=== PATIENT | female | born 1970 | race Caucasian/White ===

== ENCOUNTER 2022-07-23 22:58 | Emergency (ER) | payer OTHER, SELFPAY ==
[2022-07-23 23:03] VITALS: BP 138/88; PULSE 88; O2SAT 100
[2022-07-23 23:16] VITALS: BP 133/84; PULSE 80; RESP 20; TEMP 37.1; O2SAT 98; BMI 21.9
--- NOTE | 2022-07-24 00:05 | ED.ANXIETY ---
HPI - Anxiety General Chief Complaint: Anxiety Stated Complaint: anxiety Time Seen by Provider: 07/23/22 23:05 History of Present Illness HPI narrative: Patient is a 52-year-old female with a history of anxiety panic attacks. Complained that she had lack of sleep for the last 3 weeks feels very anxious. No suicidal homicidal ideation. Under lot of stress. Patient was seen at [facility] yesterday. Was given Atarax 50 mg. Came back in today to [facility] for the same. Patient took the Atarax was concerned that she might from the medication. Was unable to fall sleep. No fever no chills no chest pain or shortness breath no nausea no vomiting Related Data Allergies Allergy/AdvReac Type Severity Reaction Status Date / Time No Known Allergies Allergy Verified 07/23/22 23:16 Review of Systems Review of Systems: No fever no chills no cough congestion Yes all other systems are reviewed and are negative PMFSH Past Medical History Attestation statement: The following information was validated with the patient. Social History Social History Advance Directives: No Advance Directives Information Provided: Yes Physical Exam Vital Signs: Vital Signs: Last Vital Signs Temp 98.7 F 07/23/22 23:16 Pulse 80 07/23/22 23:16 Resp 20 07/23/22 23:16 BP 133/84 07/23/22 23:16 Pulse Ox 98 07/23/22 23:16 O2 Del Method Room Air 07/23/22 23:16 BMI result Body Mass Index 21.9 Appearance: Alert. Oriented X3. No acute distress. Eyes: Pupils equal, round and reactive to light. ENT: Pharynx normal. Neck: Normal inspection. Neck supple. No lymph nodes noted. No crepitus CVS: Normal heart rate and rhythm. Pulses normal. Normal S1 and S2 Respiratory: No respiratory distress. Breath sounds normal. No Wheezing. No rales Abdomen: Soft and nontender. No rigidity. No distention. good BS x4 Skin: Skin warm and dry. Normal skin color. Normal skin turgor. Extremities: No lower extremity edema. Neurovascular intact to all extremities. No Lacerations. No Rash Neuro: Oriented X 3. No motor deficit. No sensory deficit. Moving all extermities. No slurred speech Medical Decision Making Medical Decision Making MDM Narrative: Patient feel very anxious. Not suicidal not homicidal. Worry about medications. Worry about not able to sleep. Patient has a therapist. At this point she does not want a stay for evaluation by crisis. She is leaving in seeing a therapist in the morning. She is in stable condition. Discharge Plan Discharge Clinical Impression: Acute anxiety Patient Disposition: Home, Self-Care Instructions: Anxiety (ED) Referrals: Physician,Becca J [Primary Care Provider] - (Please see a therapist in a.m.)
--- OUTSIDE RECORDS SUMMARY | 2022-07-24 00:17 | XMS_ITS | Continuity of Care Document ---
Author Name Unknown Organization [facility] As critical [facility] hospital Address [address] [place] [address] ve [address] [place] [address]- Care Team Providers Care Watershed Coordinator Name Role Phone Eliezer HOOD, Emma Sanchez Primary Care Physician Encounter [facility] [place] Date(s): 07/20/20 - 08/19/20 [facility] [address] [place], [place] [address] Allergies, Adverse Reactions, Alerts No Known Medication Allergies Medications Ativan Tablet = 0.5 mg, By Mouth, 2 times a day, PRN as needed for anxiety, 0 Refills, Maintenance, 12/22/13 10:09:37 EDT Start Date: 12/22/13 Status: Ordered CeleXA 10 mg oral tablet 10 mg, 1, tablet, By Mouth, Daily in AM, # 90 tablet, Refills 0, Maintenance, 01/08/19 12:24:02 EDT Start Date: 01/08/19 Status: Ordered Colace sodium 100 mg oral capsule 100 mg, 1, capsule, By Mouth, 2 times a day, PRN, # 60 capsule, Refills 0, Tot. Refills 0, Maintenance, for constipation, 01/11/19 14:26:00 EDT, Route to Pharmacy Electronically, [id number], [facility]/pharmacy #[id number] Start Date: 01/11/19 Status: Ordered Iron-150 oral tablet 1 tablet, By Mouth, Daily, 0 Refills, Maintenance Start Date: 03/01/13 Status: Ordered MiraLax oral powder for reconstitution = 17 Gm, By Mouth, Daily, dissolve in water before taking, # 255 Gm, 0 Refills, Maintenance, 01/08/19 12:26:04 EDT, REC Powder Start Date: 01/08/19 Status: Ordered nitroglycerin 0.4% rectal ointment 1 applicator, Rectally, 3 times a day, wash hands immediately after application apply pea size amount to anal area., # 30 Gm, 0 Refills, Maintenance, 11/02/18 16:20:13 EDT Start Date: 11/02/18 Status: Ordered Valium 5 mg oral tablet 5 mg, 1, tablet, By Mouth, 3 times a day, PRN, # 40 tablet, Refills 0, Tot. Refills 0, Maintenance,Anal Spasm, 01/11/19 14:26:00 EDT, Route to Pharmacy Electronically, [id number], [facility]/pharmacy #[id number] Start Date: 01/11/19 Status: Ordered Social History Social History Type Response Smoking Status Former smoker entered on: 03/01/13 Sex
--- OUTSIDE RECORDS SUMMARY | 2022-07-24 00:17 | XMS_ITS | Continuity of Care Document ---
Author Name Unknown Organization [facility] Address [address] [place] [address] [address] [place] [address]- Care Team Providers Care Instructional Services Librarian Name Role Phone Emma Martins MD Primary Care Physician Encounter [facility] Date(s): 04/02/19 - 04/12/[address] [place] [address]- [facility] Attending Physician: Dontae Trevino Admitting Physician: Dontae Trevino Referring Physician: Dontae Trevino Referring Physician: Marie Garg Allergies, Adverse Reactions, Alerts No Known Medication [...] 01/11/19 14:26:00 EDT, Route to Pharmacy Electronically, [id number], [facility]/pharmacy #[id number] Start Date: 01/11/19 Status: Ordered Iron-150 oral [...] 01/11/19 14:26:00 EDT, Route to Pharmacy Electronically, [id number], [facility]/pharmacy #[id number] Start Date: 01/11/19 Status: Ordered Social History Social History Type Response Smoking Status Former smoker entered on: 03/01/13 Sex
--- OUTSIDE RECORDS SUMMARY | 2022-07-24 00:17 | XMS_ITS | Continuity of Care Document ---
Author Name Unknown Organization [facility] As [facility] Address [address] [place] [address] [address] [place] [address]- Care Team Providers Care Accounts Payable Technician Name Role Phone Emma Martins MD Primary Care Physician Encounter [facility] [place] Date(s): 04/02/19 - 04/09/[address] [place] [address]- [facility] Attending Physician: Justice Sims MD Referring Physician: Emma Martins MD Allergies, Adverse Reactions, Alerts No Known Medication [...] 01/11/19 14:26:00 EDT, Route to Pharmacy Electronically, [id number], [facility]/pharmacy #[id number] Start Date: 01/11/19 Status: Ordered Iron-150 oral [...] 01/11/19 14:26:00 EDT, Route to Pharmacy Electronically, [id number], [facility]/pharmacy #[id number] Start Date: 01/11/19 Status: Ordered Vital Signs Most recent to oldest [Reference Range]: 1 Height 161 cm (04/02/19 3:00 PM) Weight 57.1 kg (04/02/19 3:00 PM) Body Mass Index [18.5-24.99] 22.03 (04/02/19 3:00 PM) Temperature [96.8-100.4 DegF] 98.3 DegF (04/02/19 3:00 PM) Temperature Route Temporal (04/02/19 3:00 PM) Weight Obtained Via Standing scale (04/02/19 3:00 PM) Social History Social History Type Response Smoking Status Former smoker entered on: 03/01/13 Sex
--- NOTE | 2022-07-24 01:03 | PC.NURSE ---
dr gustafson discussed with pt plan to be evaluated by care team,. pt states she would like to just leave. dr gustafson states was putting discharge instructions in for pt when pt left prior to discharge by rn. and furnace charger aware
== END 2022-07-24 01:06 | disposition home or self-care (01) ==
PROVIDERS: Emergency Provider Emergency Medicine Emergency Medical Services
DX: F41.1 Generalized anxiety disorder (principal); F43.0 Acute stress reaction; F41.0 Panic disorder [episodic paroxysmal anxiety]
CPT/HCPCS: 99282